=== PATIENT | male | born 1990 | race African-American/Black ===

== ENCOUNTER 2018-10-26 07:55 | Emergency (ER) | payer MEDICARE, OTHER ==
[~2018-10-26] VITALS: Ht 172.7 cm; Wt 101.6 kg
[~2018-10-26 07:55] MED LIST: ALBUTEROL SULF8.5 GM INH; AZITHROMYCIN250 MG ORAL; NKM; ZYPREXA20 MG ORAL
--- NOTE | 2018-10-26 08:13 | Emergency Room Report ---
History of Present Illness General Chief Complaint: Sore Throat Source: Patient Present Illness HPI 28-year-old male with history of schizophrenia and bipolar disorder on unknown meds, presents with sore throat that started this morning. He denies any fevers , earaches, cough, shortness of breath, chest pain, neck stiffness, but does report hurts to swallow. He reports she's not try medications for symptoms. He also reports she's not had any change in his medications although he is not sure what they are. Allergies: Coded Allergies: No Known Allergies (Unverified , 04/24/14) Patient History Past Medical History: see triage record Reviewed Nursing Documentation: PMH: Agreed; PSxH: Agreed Nursing Documentation-PMH Past Medical History: No History, Except For Hx Gastrointestinal Problems: Yes - GERD Hx Neurological Problems: Yes - ANXIETY Review of Systems All Other Systems: negative except mentioned in HPI Physical Exam Vital Signs Date Time Temp Pulse Resp B/P (MAP) Pulse Ox O2 Delivery O2 Flow Rate FiO2 10/26/18 08:01 98.2 100 20 130/80 95 Room Air Sp02 EP Interpretation: reviewed, normal General Appearance: no apparent distress, alert, non-toxic Head: normocephalic Eyes: bilateral eye normal inspection, bilateral eye PERRL, bilateral eye EOMI ENT: normal ENT inspection, hearing grossly normal, no angioedema, normal voice , TMs + canals normal, uvula midline, moist mucus membranes, nasal congestion, tonsillar swelling, pharyngeal erythema Neck: normal inspection, full range of motion, supple, supple/symm/no masses Respiratory: chest non-tender, lungs clear, normal breath sounds, chest symmetrical, palpation of chest normal Cardiovascular #1: normal peripheral pulses, regular rate, rhythm Cardiovascular #2: 2+ radial (R), 2+ radial (L) Gastrointestinal: normal inspection, non tender, soft, no mass, no guarding, no rebound Rectal: deferred Genitourinary: normal inspection, no CVA tenderness Musculoskeletal: back normal, gait/station normal, normal range of motion, non- tender, no calf tenderness Neurologic: alert, responsive, procurement officer III-XII nml as tested, motor strength/tone normal, sensory intact, speech normal Psychiatric: judgement/insight normal, mood/affect normal Skin: normal color, no rash, warm/dry, normal turgor Lymphatic: no adenopathy Medical Decision Making Diagnostic Impression: Primary Impression: Tonsillitis ER Course Patient with enlarged tonsils bilaterally, normal voice, no stridor, no exudates or fevers. Given symptoms and enlarged tonsils, will give IM PCN, [place], f/u with PMD for ENT referral to consider tonsillectomy. Last Vital Signs Date Time Temp Pulse Resp B/P (MAP) Pulse Ox O2 Delivery O2 Flow Rate FiO2 10/26/18 08:01 98.2 100 20 130/80 95 Room Air Disposition: HOME, SELF-CARE Condition: Stable EPIFANIO HUGEHS M.D Oct 26, 2018 08:13
[2018-10-26] MEDS ORDERED: IBUPROFEN600 MG ORAL (08:14)
[2018-10-26] MEDS ORDERED: Bicillin LA 1.2MMU/2ML SYR IM ONE (08:15)
[2018-10-26 08:19] VITALS: BP 130/80
[2018-10-26 08:27] VITALS: BP 130/80
--- NOTE | 2018-10-26 08:29 | NUR ---
ER DISCHARGE NOTE: Patient is cleared to be discharged per ERMD, pt is aox4, on room air, with stable vital signs. pt was given dc and prescription instructions, pt was able to verbalize understanding, pt is able to ambulate with steady gait. pt took all belongings.
== END 2018-10-26 08:29 | disposition home or self-care (01) ==
LOC: EMR 08:20
DX: J03.90 Acute tonsillitis, unspecified (principal); K21.9 Gastro-esophageal reflux disease without esophagitis; F41.9 Anxiety disorder, unspecified
CPT/HCPCS: 96372; 99283; J0570; J0561